=== PATIENT | female | born 2000 | race Caucasian/White ===

== ENCOUNTER 2023-12-22 03:14 | Emergency (ER) | payer MEDICAID ==
[~2023-12-22] VITALS: Ht 165.1 cm; Wt 78.0 kg
[2023-12-22 03:21] VITALS: BP 150/88; PULSE 111; TEMP 98.2
[2023-12-22] MEDS: IPRATROPIUM BROM 0.5 MG/2.5ML INH SOL NEB ONE (03:39)
[2023-12-22] MEDS: ALBUTEROL SULF 2.5 MG/0.5ML(0.5%) NEB SOLN NEB ONE (03:39)
[2023-12-22] MEDS: IPRATROPIUM BROM 0.5 MG/2.5ML INH SOL ONE (03:39)
[2023-12-22 03:40] VITALS: RESP 18
[2023-12-22] MEDS: ALBUTEROL SULF 2.5 MG/0.5ML(0.5%) NEB SOLN ONE (03:40)
[2023-12-22] MEDS: DexAMETHasone SOD PHOS 10MG/1ML VIAL INJ IV ONE (05:02)
[2023-12-22] MEDS: DexAMETHasone SOD PHOS 10MG/1ML VIAL INJ IM ONE (05:07)
[2023-12-22] MEDS ORDERED: MONT10TA23 PO (05:15)
[2023-12-22] MEDS ORDERED: ALBUAER3 IN (05:15)
[2023-12-22 05:27] VITALS: O2SAT 97
== END 2023-12-22 05:28 | disposition home or self-care (01) ==
LOC: ER 03:14
DX: J45.909 Unspecified asthma, uncomplicated (principal)
CPT/HCPCS: 94640; 96372; 99283; J1100

== ENCOUNTER 2025-03-23 09:03 | Emergency (ER) | payer OTHER, SELFPAY ==
[~2025-03-23] VITALS: Ht 165.1 cm; Wt 82.7 kg
[~2025-03-23 09:03] MED LIST: ALBUAER3 IN; MONT10TA23 PO
--- NOTE | 2025-03-23 10:03 | ED.PDOC ---
SOB-HPI HPI Comments This is a 24 year old female presenting to the ED with chief complaint of SOB. Patient reports that she has been experiencing wheezing since last Sunday with associated SOB with exertion and cough since last night. Patient relays that she has had similar episodes of symptoms in the past when she was diagnosed with bronchitis. Patient states she has taken cough medicine with little relief noted. Patient denies any chest pain, dizziness, headache, N/V, fever, or chills. Chief Complaint: Shortness of Breath Time Seen by MD: 10:00 Primary Care Provider: NONE Reviewed notes: Nurses Notes, Medications, Allergies Information Source: Patient Mode of Arrival: Ambulatory Severity: Moderate Timing: Days Duration: Since onset Context: At Rest PE Risk Factors: None History of: None Prehospital treatment: None Modifying Factors: Nothing Associated Signs and Symptoms: Cough If cough with SOB: Non-Productive Past Medical History PAST MEDICAL HISTORY: Denies Surgical History: Denies all surgeries TRANSITIONAL LIVING SPECIALIST History: No Pertinent TRANSITIONAL LIVING SPECIALIST History Family History Family History: Reviewed,noncontributory to illness, Unobtainable Social History Smoker: Non-Smoker Alcohol: Denies ETOH Use Drugs: Denies Drug Use Lives In: Home Constitutional: denies: chills, diaphoresis, fatigue, fever, malaise, sweats, weakness, others EENTM: denies: blurred vision, double vision, ear bleeding, ear discharge, ear drainage, ear pain, ear ringing, eye pain, eye redness, hearing loss, mouth pain, mouth swelling, nasal discharge, nose bleeding, nose congestion, nose pain, photophobia, tearing, throat pain, throat swelling, voice changes, others Respiratory: reports: cough, SOB with excertion; denies: hemoptysis, orthopnea, SOB at rest, shortness of breath, stridor, wheezing, others Cardiovascular: denies: chest pain, dizzy spells, diaphoresis, Dyspnea on exertion, edema, irregular heart beat, left arm pain, lightheadedness, palpitations, PND, syncope, others Gastrointestinal: denies: abdomen distended, abdominal pain, blood streaked bowels, constipated, diarrhea, dysphagia, difficulty swallowing, hematemesis, melena, nausea, poor appetite, poor fluid intake, rectal bleeding, rectal pain, vomiting, others Genitourinary: denies: abnormal vagina bleeding, burning, dyspareunia, dysuria, flank pain, frequency, hematuria, incontinence, pain, , vagina discharge, urgency, others Neurological: denies: dizziness, fainting, headache, left sided numbness, left sided weakness, numbness, paresthesia, pre-existing deficit, right sided numbness, right sided weakness, seizure, speech problems, tingling, tremors, weakness, others Musculoskeletal: denies: back pain, gout, joint pain, joint swelling, muscle pain, muscle stiffness, neck pain, others Integumetry: denies: bruises, change in color, change in hair/nails, dryness, laceration, lesions, lumps, rash, wounds, others Allergic/Immunocompromised: denies: Difficulty Healing, Frequent Infections, Hives, Itching, others Hematologic/Lymphatic: denies: anemia, blood clots, easy bleeding, easy bruising, swollen glands, others Endocrine: denies: excessive hunger, excessive sweating, excessive thirst, excessive urination, flushing, intolerance to cold, intolerance to heat, unexplained weight gain, unexplained weight loss, others Psychiatric: denies: anxiety, bipolar disorder, depression, hopeless, panic disorder, schizophrenia, sleepless, suicidal, others All Other Systems: Reviewed and Negative Physical Exam General Appearance: No Apparent Distress, Normal HEENT: Normal ENT Inspection, Pharynx Normal, TMs Normal Neck: Full Range of Motion, Non-Tender, Normal, Normal Inspection Respiratory: Chest Non-Tender, No Accessory Muscle Use, No Respiratory Distress, Wheezing (Inspiratory/Expiratory wheezes, no nasal flaring.) Cardiovascular: No Murmur, No Gallop, Regular Rate/Rhythm Breast Exam: Deferred Gastrointestinal: No Organomegaly, Non Tender, No Pulsatile Mass, Normal Bowel Sounds, Soft Genitalia: Deferred Pelvic: Deferred Rectal: Deferred Extremities: No calf tenderness, Normal capillary refill, Normal inspection, Normal range of motion, Non-tender, No pedal edema Musculoskeletal : Apperance: Normal Neurologic: Alert, machine sweeper brush maker II-XII nml as Tested, No Motor Deficits, Normal Affect, Normal Mood, No Sensory Deficits Cerebellar Function: Normal Reflexes: Normal Skin: Dry, Normal Color, Warm Lymphatic: No Adenopathy Was a procedure done? Was a procedure done?: No Differential Dx Differential Diagnosis: Asthma, Bronchitis, Pneumonia, URI X-Ray, Labs, Meds, VS Vital Signs Date Time Temp Pulse Resp B/P (MAP) Pulse Ox O2 Delivery O2 Flow Rate FiO2 03/23/25 11:00 98.2 87 18 136/76 (96) 97 98.2 03/23/25 11:00 78 18 97 Room Air 03/23/25 10:25 18 92 Room Air* 0 21 03/23/25 09:10 98.1 108 20 154/77 95 98.1 [place] [address] Ph: [phone] DIAGNOSTIC IMAGING Diagnostic Imaging Report : [id number] Signed PATIENT: PATI VILLAGOMEZ ACCT: [id number] UNIT: [id number] : 2000 LOC: ER ROOM / BED: / AGE / SEX: 24 / F ADM STATUS: REG ER SERVICE 1003 ORDERING PHYSICIAN: DANTE BAIRD VOCATIONAL REHABILITATION CONSULTANT PROCEDURE(s): CXR2 - CHEST TWO VIEWS ROUTINE REASON: Cough ORDER NUMBER(s): [id number], ACCESSION NUMBER(s): [id number] EXAM: XY CHEST TWO VIEWS ROUTINE HISTORY: Cough COMPARISON: None TECHNIQUE: Frontal and lateral views of the chest were performed. FINDINGS: No pneumothorax, pulmonary edema, pleural effusions, or consolidative infiltrates. There is mild peribronchial thickening centrally. The heart is not enlarged. No fractures are identified about the bony thorax. There is slight lower thoracic dextroscoliosis. IMPRESSION: Mild reactive airways disease. The lungs are otherwise clear. ATED BY: BREANNE MO MD DICTATED DATE/TIME: 03/23/25 1030 SIGNED BY: BREANNE MO MD SIGNED DATE/TIME: 03/23/25 103 CC: X-Ray, Labs, Meds, VS Comment This is a 24 year old female presenting to the ED with chief complaint of SOB. Patient arrives alert and oriented, ABC's intact, afebrile, vital signs stable, saturating well in room air Diagnostic imaging ordered by me and results interpreted by radiology : Chest XR Patient was given: DuoNeb breathing treatment and Decadron 16mg IM. Tolerated medications with no adverse reaction. Patient presents with cough and expiratory wheezing Exacerbation likely in the setting of the cold weather. Differentials considered but not limited to: PNA, bronchiolitis, Foreign body airway obstruction, GERD. I also considered pulmonary embolism, CHF, COPD, however, this is less likely as the patients pulse oximetry is with normal limits and ambulating without difficulty. Chest x-ray was obtained, and interpreted independently by myself as not showing focal consolidations or lobar pneumonia. Discussed viral etiologies with the patient however viral testing was not indicated as it does not ticket dispenser changer and the patient was overall well-appearing. While in the ED, the patient was treated with Albuterol and Atrovent, Dexamethasone. On reevaluation symptoms improved with treatment in the ED. Vital signs and exam reassuring. Lungs clear no wheezing. No labored breathing. No signs of respiratory distress. Patient was prescribed a short course of steroids. Inhaler prescribed as needed. Strict return precautions were discussed. Follow up with PCP 2-3 days. Additional MDM Review of External, Non-ED records: External records reviewed. Discussion with independent historian (EMS, family) history obtained from the patient/parents (if applicable) at bedside Chronic conditions affecting care: None Social determinants of health affecting care: None Consideration of admission (observation or admission): I considered escalation of care to admission for this patient, however given the reassuring workup, the patient is safe for outpatient management. Discussion with the Radiology: No Tests considered but not performed: None Prescription medication considered but not given: None On reevaluation, patient had symptomatic improvement. Patient is stable for discharge at this time. External notes reviewed. Test results and diagnostic imaging interpreted. All diagnostic findings, discharge care, education and instructions provided Follow-up with PCP in 2 to 3 days Patient verbalized understanding and agreed to treatment plan Vital signs stable, afebrile, no acute distress noted Patient ambulatory with strong steady gait Advised to return precautions for any new or worsening symptoms, return to ER immediately for re-evaluation Patient is aware that the purpose of this visit was for an acute medical emergency requiring emergent stabilization. Chronic conditions, including malignancies have not been ruled out. Patient is instructed to follow up with PCP as directed and discharge instructions for continued care and workup. If unable to arrange follow-up, patient is to return to the emergency department for reassessment. Patient (parent or legal guardian if applicable) was given verbal and written discharge instructions and acknowledges understanding. Time of 1ST Reevaluation: 10:15 Reevaluation 1ST: Improved Patient Education/Counseling: Diagnosis, Treatment Family Education/Counseling: No Family Present SEPSIS Sepsis Screen Date sepsis recognized/suspect: Mar 23, 2025 Time Sepsis recognized/suspect: 911 Recent Procedure: No On Antibiotic Therapy: No Respiratory Rate >20: No Heart Rate >90: Yes Temp<36 C (96.8 F) or >38.3 C: No SBP <90 or MAP <65 mmHG: No New Acute Mental Status Change: No Is the patient on CPAP, BIPAP,: No Physician Orders Chest Two Views Routine (03/23/25 10:03) Vital Signs Date Time Temp Pulse Resp B/P (MAP) Pulse Ox O2 Delivery O2 Flow Rate FiO2 03/23/25 11:00 98.2 87 18 136/76 (96) 97 98.2 03/23/25 11:00 78 18 97 Room Air 03/23/25 10:25 18 92 Room Air* 0 21 03/23/25 09:10 98.1 108 20 154/77 95 98.1 Departure 1 Departure Time of Disposition: 11:37 Impression: Primary Impression: Asthma exacerbation Qualified Codes: J45.21 - Mild intermittent asthma with (acute) exacerbation Disposition: 01 HOME / SELF CARE / HOMELESS Condition: Stable e-Prescriptions Albuterol Sulfate (Albuterol Sulfate Hfa) 108 Mcg/Act Aer 1 PUFF IN Q6HP PRN for 30 Days, #1 AER 0 Refills Prov: DANTE BAIRD VOCATIONAL REHABILITATION CONSULTANT 03/23/25 Methylprednisolone (Medrol Dosepak) 4 Mg Leonard 4 MG PO UD for 7 Days, #21 TAB 0 Refills UAD Prov: DANTE BAIRD VOCATIONAL REHABILITATION CONSULTANT 03/23/25 Discharged With: Self Critical Care Note Critical Care Time?: No Stability Stability form required: No Heart Score Heart Score: Heart Score Response (Comments) Value History N/A 0 EKG N/A 0 Age N/A 0 Risk Factors N/A 0 Troponin N/A 0 Total 0 I personally scribed for DANTE BAIRD VOCATIONAL REHABILITATION CONSULTANT ([email or web address]) on 03/23/25 at 10:03. Electronically submitted by Anup Champion ([email or web address]). I personally scribed for DANTE BAIRD VOCATIONAL REHABILITATION CONSULTANT ([email or web address]) on 03/23/25 at 10:04. Electronically submitted by Anup Champion ([email or web address]). I personally scribed for DANTE BAIRD NP ([email or web address]) on 03/23/25 at 10:45. Electronically submitted by Anup Champion ([email or web address]). I personally scribed for DANTE BAIRD NP ([email or web address]) on 03/23/25 at 11:38. Electronically submitted by Anup Champion ([email or web address]). DANTE BAIRD NP Mar 23, 2025 10:03
[2025-03-23] MEDS: ALBUTEROL SULF 2.5 MG/0.5ML(0.5%) NEB SOLN NEB ONE (10:22)
[2025-03-23] MEDS: IPRATROPIUM BROM 0.5 MG/2.5ML INH SOL NEB ONE (10:22)
--- NOTE | 2025-03-23 10:33 | DVH ---
EXAM: XY CHEST TWO VIEWS ROUTINE HISTORY: Cough COMPARISON: None TECHNIQUE: Frontal and lateral views of the chest were performed. FINDINGS: No pneumothorax, pulmonary edema, pleural effusions, or consolidative infiltrates. There is mild peribronchial thickening centrally. The heart is not enlarged. No fractures are identified about the bony thorax. There is slight lower thoracic dextroscoliosis. IMPRESSION: Mild reactive airways disease. The lungs are otherwise clear.
[2025-03-23 11:00] VITALS: BP 136/76; PULSE 78; RESP 18; TEMP 98.2; O2SAT 97
[2025-03-23] MEDS ORDERED: METH4PAK PO (11:41)
[2025-03-23] MEDS ORDERED: ALBU108A5 IN (11:41)
== END 2025-03-23 11:43 | disposition home or self-care (01) ==
LOC: ER 09:03
DX: J45.901 Unspecified asthma with (acute) exacerbation (principal); Z79.899 Other long term (current) drug therapy
CPT/HCPCS: 71046; 94640; 96372; 99283; J1100